=== PATIENT | female | born 1950 | race Caucasian/White ===

== ENCOUNTER 2018-02-08 20:03 | Inpatient (IN) | payer OTHER, MEDICARE ==
[2018-02-08] MEDS ORDERED: KETOROLAC TROMETHAMINE INJ/PF 30 MG/1 ML SDV IV ONE (20:12)
[2018-02-08] MEDS ORDERED: PROCHLORPERAZINE EDISYLATE INJ 10 MG/2 ML VIAL IV ONE (20:12)
[2018-02-08] MEDS ORDERED: RINGERS SOLUTION,LACTATED 1,000 ML IV ONE ×2 (20:13→22:12)
--- NOTE | 2018-02-08 20:14 | ER Document Report ---
ED General - General Stated Complaint: HEADACHE Time Seen by Provider: 02/08/18 20:07 Notes: Patient is a 67 year old female with a past medical history of diabetes and hypertension who presents with 3-4 days of nausea, vomiting and diarrhea. Patient reports that her symptoms initially started with vomiting which has now resolved and now she has persistent, watery, volume is diarrhea. She states that she is having over 10 bowel movements daily. She has tried over-the- counter loperamide without any improvement of her symptoms. Nothing seems to worsen her symptoms. She notes that she has been able to take fluids but has very little appetite and has difficulty swallowing the fluids due to nausea. She denies any fever or constitutional symptoms. She notes that she intermittently has a generalized, mild, cramping pain to her abdomen that tends to present before she has bowel movements but then does resolve. She denies a history of similar symptoms in the past. No known sick contacts. She has not seen her primary care doctor regarding today's concerns. - Related Data Allergies/Adverse Reactions: No Known Allergies Allergy (Unverified 03/31/12 09:25) Past Medical History - General Information source: Patient - Social History Smoking Status: Never Smoker Frequency of alcohol use: None Drug Abuse: None Lives with: Spouse/Significant other Family History: Reviewed & Not Pertinent - Past Medical History Cardiac Medical History: Reports: Hx Hypertension Denies: Hx Heart Attack Pulmonary Medical History: Denies: Hx Asthma Neurological Medical History: Denies: Hx Cerebrovascular Accident, Hx Seizures GI Medical History: Denies: Hx Hepatitis, Hx Hiatal Hernia, Hx Ulcer Infectious Medical History: Denies: Hx Hepatitis Past Surgical History: Reports: Hx Hysterectomy. Denies: Hx Mastectomy, Hx Open Heart Surgery, Hx Pacemaker Review of Systems - Review of Systems Notes: Constitutional: Negative for fever. HENT: Negative for sore throat. Eyes: Negative for visual changes. Cardiovascular: Negative for chest pain. Respiratory: Negative for shortness of breath. Gastrointestinal: Positive for intermittent abdominal cramping, vomiting and diarrhea Genitourinary: Negative for dysuria. Musculoskeletal: Negative for back pain. Skin: Negative for rash. Neurological: Negative for headaches, weakness or numbness. 10 point ROS negative except as marked above and in HPI. Physical Exam - Vital signs Vitals: Pulse Ox 98 02/08/18 20:07 Interpretation: Normal Notes: PHYSICAL EXAMINATION: GENERAL: Appears tired but in no acute distress HEAD: Atraumatic, normocephalic. EYES: Pupils equal round and reactive to light, extraocular movements intact, sclera anicteric, conjunctiva are normal. ENT: nares patent, oropharynx clear without exudates. Moderately dry mucous membranes. NECK: Normal range of motion, supple without lymphadenopathy LUNGS: Breath sounds clear to auscultation bilaterally and equal. No wheezes rales or rhonchi. HEART: Regular rate and rhythm without murmurs ABDOMEN: Soft, nontender, normoactive bowel sounds. No guarding, no rebound. No masses appreciated. EXTREMITIES: Normal range of motion, no pitting or edema. No cyanosis. NEUROLOGICAL: No focal neurological deficits. Moves all extremities spontaneously and on command. PSYCH: Normal mood, normal affect. SKIN: Warm, Dry, normal turgor, no rashes or lesions noted. Course - Re-evaluation Re-evalutation: 02/08/18 20:13 Presentation of an overall well-appearing patient in no acute distress with complaints of nausea, vomiting, diarrhea. This is consistent with likely viral gastroenteritis. Patient has no abdominal tenderness on exam and specifically no tenderness in the RLQ, LLQ, RUQ. Overall well hydrated on exam. Able to tolerate oral intake here in the emergency department. Low clinical suspicion for any acute life-threatening etiology based on exam and history including acute cholecystitis, SBO, appendicitis, nephrolithiasis, or pylonephritis. Patient did also complain of a headache that has been present for the past 2 days. Headache appears to be most consistent with tension versus migrainous type headache. Headache was not maximal in onset, patient has no focal neurologic deficits, no nuchal rigidity, vital signs within normal limits, no papilledema, and patient is overall well in appearance. Based on clinical history and examination I do not suspect an acute subarachnoid hemorrhage, dural venous sinus thrombosis, acute meningitis, or intercranial mass. Given my low clinical suspicion for any acute life-threatening etiology, I do not feel advanced neuro imaging is indicated at this time. Will provide nausea medicines, IV fluids, obtain laboratories and reassess the patient. 02/08/18 22:12 Patient laboratory show acute renal failure, prerenal in origin although the degree of her GFR abnormality warrants hospitalization for repeat BMP and IV fluids. Will give an additional liter of IV fluid at this time. She has not had any vomiting and has been able to tolerate oral intake. Headache has resolved. I have discussed with the hospitalist for admission. - Vital Signs Vital signs: Temp Pulse Resp BP Pulse Ox 97.3 F 73 12 101/41 L 99 02/09/18 00:01 02/09/18 02:00 02/08/18 23:00 02/09/18 00:01 02/09/18 00:01 - Laboratory Result Diagrams: 02/08/18 20:34 02/08/18 20:34 Laboratory results interpreted by me: 02/08/18 02/08/18 02/08/18 20:12 20:34 20:34 WBC 11.1 H Carbon Dioxide 20 L BUN 59 H Creatinine 2.27 H Est GFR ( Amer) 26 L Est GFR (Non-Af Amer) 22 L Glucose 149 H POC Glucose 136 H Calcium 8.1 L AST 47 H ALT 105 H Alkaline Phosphatase 176 H Total Protein 6.1 L Discharge - Discharge Clinical Impression: Dehydration, Vomiting and diarrhea Acute renal failure Qualifiers: Acute renal failure type: unspecified Qualified Code(s): N17.9 - Acute kidney failure, unspecified Condition: Fair Disposition: ADMITTED OBSERVATION Admitting Provider: Hospitalist Unit Admitted: Medical Floor
[2018-02-08 20:47] LABS: ABSOLUTE EOSINOPHILS # (AUTO) 0.1 10^3/uL (0.0-0.6); ABSOLUTE LYMPHOCYTES (AUTO) 1.9 10^3/uL (0.5-4.7); ABSOLUTE MONOCYTES (AUTO) 0.8 10^3/uL (0.1-1.4); ABSOLUTE NEUT (AUTO) 8.2 10^3/uL (1.7-8.2); BASOPHILS % (AUTO) 0.3 % (0-2); EOSINOPHILS % (AUTO) 0.9 % (0-6); HEMATOCRIT 42.1 % (36.0-47.0); HEMOGLOBIN 13.9 g/dL (12.0-15.5); LYMPHOCYTES % (AUTO) 17.1 % (13-45); MEAN CORPUSCULAR HEMOGLOBIN 31.2 pg (27.0-33.4); MEAN CORPUSCULAR VOLUME 94 fl (80-97); MONOCYTES % (AUTO) 7.5 % (3-13); RED BLOOD COUNT 4.46 10^6/uL (3.72-5.28); SEGMENTED NEUTROPHILS % (AUTO) 74.2 % (42-78); TOTAL CELLS COUNTED % (AUTO) 100 %; WHITE BLOOD COUNT 11.1 10^3/uL (4.0-10.5)
[2018-02-08 20:59] LABS: ALANINE AMINOTRANSFERASE 105 U/L (9-52); ALBUMIN 3.8 g/dL (3.5-5.0); ALKALINE PHOSPHATASE 176 U/L (38-126); ANION GAP 15 (5-19); ASPARTATE AMINO TRANSFERASE 47 U/L (14-36); BILIRUBIN,DIRECT 0.4 mg/dL (0.0-0.4); BILIRUBIN,TOTAL 0.5 mg/dL (0.2-1.3); BLOOD UREA NITROGEN 59 mg/dL (7-20); CALCIUM 8.1 mg/dL (8.4-10.2); CARBON DIOXIDE 20 mmol/L (22-30); CHLORIDE 105 mmol/L (98-107); GLUCOSE 149 mg/dL (75-110); LIPASE 116.3 U/L (23-300); POTASSIUM 4.6 mmol/L (3.6-5.0); SODIUM 140.4 mmol/L (137-145); TOTAL PROTEIN 6.1 g/dL (6.3-8.2)
[2018-02-08 21:04] LABS: PLATELET COUNT 189 10^3/uL (150-450)
[2018-02-08] MEDS ORDERED: PROMETHAZINE HCL INJ 25 MG/1 ML VIAL IV PRN (22:30)
[2018-02-08] MEDS ORDERED: GLUCAGON,HUMAN RECOMB 1 MG INJ IM PRN (22:35)
[2018-02-08] MEDS ORDERED: DEXTROSE 50%-WATER 25 GM/50 ML DISP.SYRIN IV PRN ×2 (22:35)
[2018-02-08] MEDS ORDERED: INSULIN LISPRO 100 UNIT/ML 3 ML VIAL SUBCUT PRN (22:35)
[2018-02-08] MEDS ORDERED: DEXTROSE 40% GEL 15 GM TUBE PO PRN ×2 (22:35)
--- NOTE | 2018-02-09 00:24 | PDOC H&P ---
History of Present Illness Admission Date/PCP: 02/08/18 22:30 History of Present Illness: DAVID SIDDIQUI is a 67 year old female patient with past medical history of HTN, HLD, diabetes mellitus and hypothyroidism presented with 2 days history of nausea, vomiting and frequent watery diarrhea. Patient attributes her condition to taking metformin. She denies fever, chills, cough, chest pain , abdominal pain or dysuria. There is no history of sick contact. Her initial lab work shows elevated creatinine of 2.27 and her GFR is disproportionately elevated which is 22. No headache, dizziness, blurry vision or any seizure activity. Past Medical History Cardiac Medical History: Reports: Hypertension Denies: Myocardial Infarction Pulmonary Medical History: Denies: Asthma Neurological Medical History: Denies: Seizures Endocrine Medical History: Reports: Hypothyroidism GI Medical History: Denies: Hepatitis, Hiatal Hernia Hematology: Denies: Anemia, Sickle Cell Disease Past Surgical History Past Surgical History: Reports: Hysterectomy Denies: Amputation, Mastectomy, Pacemaker Social History Smoking Status: Unknown if Ever Smoked - Advance Directive Resuscitation Status: Full Code Family History Family History: Malignancy Parental Family History Reviewed: Yes Children Family History Reviewed: Yes Sibling(s) Family History Reviewed.: Yes Medication/Allergy Home Medications: Aspirin [Aspirin 81 mg Chewable Tablet] 81 mg PO DAILY 03/31/12 Celecoxib [Celebrex] 200 mg PO 03/31/12 Cholecalciferol (Vitamin D3) [Vitamin D3 1000 Unit Tablet] 4,000 unit PO DAILY 03/31/12 Hum Insulin NPH/Reg Insulin Hm [Humulin 70-30 Pen] 100 unit SQ MEALS 03/31/12 Insulin Regular, Human [Humulin R] 100 unit IJ 03/31/12 Levothyroxine Sodium [Synthroid 75 Mcg Tablet] 75 mcg PO DAILY 03/31/12 Olmesartan/Hydrochlorothiazide [Benicar Hct 40-25 Mg Tablet] 1 each PO 03/31/12 Allergies/Adverse Reactions: No Known Allergies Allergy (Unverified 03/31/12 09:25) Review of Systems Constitutional: PRESENT: as per HPI Eyes: PRESENT: as per HPI Cardiovascular: PRESENT: as per HPI Respiratory: PRESENT: as per HPI Gastrointestinal: PRESENT: as per HPI Neurological: PRESENT: as per HPI Physical Exam Vital Signs: Temp Pulse Resp BP Pulse Ox 97.3 F 75 12 101/41 L 99 02/09/18 00:01 02/09/18 00:01 02/08/18 23:00 02/09/18 00:01 02/09/18 00:01 Intake & Output 02/07/18 02/08/18 02/09/18 06:59 06:59 06:59 Weight 112.2 kg Assessment & Plan - Diagnosis (1) Acute kidney injury Is this a current diagnosis for this admission?: Yes Plan: Cautious hydration Avoid nephrotoxic agents Renal functions test in a.m. (2) Hypertension Qualifiers: Hypertension type: essential hypertension Qualified Code(s): I10 - Essential (primary) hypertension Is this a current diagnosis for this admission?: Yes Plan: Continue her home medication (3) Hyperlipidemia Qualifiers: Hyperlipidemia type: unspecified Qualified Code(s): E78.5 - Hyperlipidemia , unspecified Is this a current diagnosis for this admission?: Yes Plan: Continue her home medication (4) Diabetes 1.5, managed as type 2 Is this a current diagnosis for this admission?: Yes Plan: Continue her home medication and put her on sliding scale. - Time Time Spent: 30 to 50 Minutes - Inpatient Certification Medical Necessity: Need For IV Fluids
[2018-02-09] MEDS: NORMAL SALINE 1000 ML 1,000 ML IV PRN ×4 (00:53→21:26)
[2018-02-09] MEDS: HEPARIN SOD (PORCINE) 5,000 UNIT/ML 1 ML SYRINGE SUBCUT SCH ×3 (05:14→21:23)
[2018-02-09] MEDS: LANSOPRAZOLE 30 MG TAB.RAP.DR PO SCH (05:14)
[2018-02-09 05:30] LABS: ABSOLUTE EOSINOPHILS # (AUTO) 0.1 10^3/uL (0.0-0.6); ABSOLUTE LYMPHOCYTES (AUTO) 2.9 10^3/uL (0.5-4.7); ABSOLUTE MONOCYTES (AUTO) 0.9 10^3/uL (0.1-1.4); ABSOLUTE NEUT (AUTO) 6.5 10^3/uL (1.7-8.2); BASOPHILS % (AUTO) 0.3 % (0-2); EOSINOPHILS % (AUTO) 1.3 % (0-6); HEMATOCRIT 38.2 % (36.0-47.0); HEMOGLOBIN 12.7 g/dL (12.0-15.5); LYMPHOCYTES % (AUTO) 27.9 % (13-45); MEAN CORPUSCULAR HEMOGLOBIN 31.4 pg (27.0-33.4); MEAN CORPUSCULAR HGB CONC 33.2 g/dL (32.0-36.0); MEAN CORPUSCULAR VOLUME 95 fl (80-97); MONOCYTES % (AUTO) 8.1 % (3-13); PLATELET COUNT 175 10^3/uL (150-450); RED BLOOD COUNT 4.04 10^6/uL (3.72-5.28); RED CELL DISTRIBUTION WIDTH 14.2 % (11.5-14.0); SEGMENTED NEUTROPHILS % (AUTO) 62.4 % (42-78); TOTAL CELLS COUNTED % (AUTO) 100 %; WHITE BLOOD COUNT 10.5 10^3/uL (4.0-10.5)
[2018-02-09 05:54] LABS: ANION GAP 15 (5-19); BLOOD UREA NITROGEN 55 mg/dL (7-20); CALCIUM 7.9 mg/dL (8.4-10.2); CARBON DIOXIDE 19 mmol/L (22-30); CHLORIDE 109 mmol/L (98-107); GLUCOSE 85 mg/dL (75-110); PHOSPHORUS 4.2 mg/dL (2.5-4.5); SODIUM 142.6 mmol/L (137-145)
[2018-02-09] MEDS: GLIPIZIDE XL 5 MG TAB.ER.24 PO SCH (08:19)
--- NOTE | 2018-02-09 10:28 | PDOC PROGRESS REPORT ---
Subjective Progress Note for:: 02/09/18 Subjective:: Patient is seen on rounds. She is resting on the side of the bed. Her is at the bedside. She denies any chest pain, shortness of breath or dyspnea. She denies any fevers or chills. She denies any further nausea, vomiting or diarrhea. She denies any significant arthralgias or myalgias. Reason For Visit: ACUTE KIDNEY INJURY, DEHYDRATION Physical Exam Vital Signs: Temp Pulse Resp BP Pulse Ox 98.8 F 79 18 110/41 L 94 02/09/18 07:38 02/09/18 07:38 02/09/18 07:38 02/09/18 07:38 02/09/18 07:38 Intake & Output 02/08/18 02/09/18 02/10/18 06:59 06:59 06:59 Intake Total 1200 Balance 1200 Weight 112.5 kg General appearance: PRESENT: no acute distress, morbidly obese, well-developed, well-nourished Head exam: PRESENT: atraumatic, normocephalic Eye exam: PRESENT: conjunctiva pink, EOMI, PERRLA. ABSENT: scleral icterus Ear exam: PRESENT: normal external ear exam Mouth exam: PRESENT: moist, tongue midline Neck exam: ABSENT: carotid bruit, JVD, lymphadenopathy, thyromegaly Respiratory exam: PRESENT: clear to auscultation luisa. ABSENT: rales, rhonchi, wheezes Cardiovascular exam: PRESENT: RRR. ABSENT: diastolic murmur, rubs, systolic murmur Pulses: PRESENT: normal dorsalis pedis pul Vascular exam: PRESENT: normal capillary refill GI/Abdominal exam: PRESENT: ascites Rectal exam: PRESENT: deferred Extremities exam: PRESENT: full ROM. ABSENT: calf tenderness, clubbing, pedal edema Neurological exam: PRESENT: alert, awake, oriented to person, oriented to place , oriented to time, oriented to situation, CN II-XII grossly intact. ABSENT: motor sensory deficit Psychiatric exam: PRESENT: appropriate affect, normal mood. ABSENT: homicidal ideation, suicidal ideation Skin exam: PRESENT: dry, intact, warm. ABSENT: cyanosis, rash Results Laboratory Results: 02/09/18 04:47 02/09/18 04:47 02/09/18 02/09/18 04:47 04:47 WBC 10.5 RBC 4.04 Hgb 12.7 Hct 38.2 MCV 95 MCH 31.4 MCHC 33.2 RDW 14.2 H Plt Count 175 Seg Neutrophils % 62.4 Lymphocytes % 27.9 Monocytes % 8.1 Eosinophils % 1.3 Basophils % 0.3 Absolute Neutrophils 6.5 Absolute Lymphocytes 2.9 Absolute Monocytes 0.9 Absolute Eosinophils 0.1 Absolute Basophils 0.0 Sodium 142.6 Potassium 4.0 Chloride 109 H Carbon Dioxide 19 L Anion Gap 15 BUN 55 H Creatinine 1.65 H Est GFR ( Amer) 38 L Est GFR (Non-Af Amer) 31 L Glucose 85 Calcium 7.9 L Phosphorus 4.2 Magnesium 2.6 H Assessment & Plan - Diagnosis (1) Acute kidney injury Is this a current diagnosis for this admission?: Yes Plan: Improving with IV hydration. Nausea, vomiting and diarrhea has resolved for now (2) Dehydration Is this a current diagnosis for this admission?: Yes Plan: Continue IV fluids (3) Diabetes 1.5, managed as type 2 Is this a current diagnosis for this admission?: Yes (4) Hyperlipidemia Qualifiers: Hyperlipidemia type: unspecified Qualified Code(s): E78.5 - Hyperlipidemia , unspecified Is this a current diagnosis for this admission?: Yes Plan: Continue statin (5) Hypertension Qualifiers: Hypertension type: essential hypertension Qualified Code(s): I10 - Essential (primary) hypertension Is this a current diagnosis for this admission?: Yes Plan: She is normotensive on current medications (6) Vomiting and diarrhea Is this a current diagnosis for this admission?: No Plan: This has resolved (7) Morbid obesity Is this a current diagnosis for this admission?: Yes Plan: Counseled - Time Time Spent with patient: 15-24 minutes Medications reviewed and adjusted accordingly: Yes Anticipated discharge: Home Within: within 24 hours
[2018-02-09] MEDS: ACETAMINOPHEN 325 MG TABLET PO PRN ×2 (12:39→23:25)
[2018-02-10 05:07] LABS: ABSOLUTE EOSINOPHILS # (AUTO) 0.1 10^3/uL (0.0-0.6); ABSOLUTE LYMPHOCYTES (AUTO) 2.7 10^3/uL (0.5-4.7); ABSOLUTE MONOCYTES (AUTO) 0.8 10^3/uL (0.1-1.4); ABSOLUTE NEUT (AUTO) 5.8 10^3/uL (1.7-8.2); BASOPHILS % (AUTO) 0.2 % (0-2); EOSINOPHILS % (AUTO) 1.5 % (0-6); HEMATOCRIT 35.5 % (36.0-47.0); HEMOGLOBIN 11.8 g/dL (12.0-15.5); LYMPHOCYTES % (AUTO) 28.6 % (13-45); MEAN CORPUSCULAR HEMOGLOBIN 31.4 pg (27.0-33.4); MEAN CORPUSCULAR HGB CONC 33.3 g/dL (32.0-36.0); MEAN CORPUSCULAR VOLUME 94 fl (80-97); MONOCYTES % (AUTO) 8.1 % (3-13); PLATELET COUNT 185 10^3/uL (150-450); RED BLOOD COUNT 3.77 10^6/uL (3.72-5.28); RED CELL DISTRIBUTION WIDTH 14.1 % (11.5-14.0); SEGMENTED NEUTROPHILS % (AUTO) 61.6 % (42-78); TOTAL CELLS COUNTED % (AUTO) 100 %; WHITE BLOOD COUNT 9.4 10^3/uL (4.0-10.5)
[2018-02-10] MEDS: LANSOPRAZOLE 30 MG TAB.RAP.DR PO SCH (05:19)
[2018-02-10] MEDS: HEPARIN SOD (PORCINE) 5,000 UNIT/ML 1 ML SYRINGE SUBCUT SCH (05:19)
[2018-02-10 05:32] LABS: ANION GAP 10 (5-19); CALCIUM 7.8 mg/dL (8.4-10.2); CARBON DIOXIDE 21 mmol/L (22-30); CHLORIDE 112 mmol/L (98-107); GLUCOSE 159 mg/dL (75-110); SODIUM 142.6 mmol/L (137-145)
[2018-02-10 05:59] LABS: BLOOD UREA NITROGEN 24 mg/dL (7-20)
[2018-02-10] MEDS ORDERED: CELECOXIB 200 MG CAPSULE PO SCH (08:00)
[2018-02-10 08:16] VITALS: BP 148/56
[2018-02-10] MEDS: GLIPIZIDE XL 5 MG TAB.ER.24 PO SCH (08:30)
--- NOTE | 2018-02-10 09:59 | PDOC DISCHARGE SUMMARY ---
General - Admit/Disc Date/PCP Admission Date/Primary Care Provider: 02/08/18 22:30 Discharge Date: 02/10/18 - Discharge Diagnosis (1) Acute kidney injury Is this a current diagnosis for this admission?: Yes Summary: Resolved, secondary to dehydration vomiting and diarrhea (2) Dehydration Is this a current diagnosis for this admission?: Yes Summary: Resolved (3) Diabetes 1.5, managed as type 2 Is this a current diagnosis for this admission?: Yes Summary: Continue home medications hold metformin (4) Hyperlipidemia Is this a current diagnosis for this admission?: Yes Summary: Continue statin (5) Hypertension Is this a current diagnosis for this admission?: Yes Summary: Continue home medications (6) Vomiting and diarrhea Is this a current diagnosis for this admission?: No Summary: Resolved secondary to viral gastroenteritis (7) Morbid obesity Is this a current diagnosis for this admission?: Yes Summary: Counseled - Additional Information Resuscitation Status: Full Code Discharge Diet: Diabetic Discharge Activity: Activity As Tolerated, Balance Activity w/Rest Home Medications: Aspirin [Aspirin 81 mg Chewable Tablet] 81 mg PO DAILY 02/09/18 Atorvastatin Calcium [Lipitor 10 mg Tablet] 5 mg PO DAILY 02/09/18 Celecoxib [Celebrex 200 mg Capsule] 200 mg PO Q2D 02/09/18 Cinnamon Bark [Cinnamon] 1,000 mg PO DAILY 02/09/18 Insulin Glargine,Hum.rec.anlog [Basaglar Kwikpen U-100] 45 units SQ QPM Levothyroxine Sodium [Synthroid] 112 mg PO Q6AM 02/09/18 Metoprolol Succinate [Toprol XL 100 mg Tablet] 100 mg PO DAILY 02/09/18 Multivitamin [Tab-A-Aditya (Multiple Vitamin) Tablet] 1 tab PO DAILY 02/09/18 Pregabalin [Lyrica] 75 mg PO Q12 02/09/18 Semaglutide [Ozempic] 0.5 mg SQ TU@0800 02/09/18 Telmisartan/Hydrochlorothiazid [Telmisartan-Hctz 80-25 mg Tab] 1 tab PO DAILY History of Present Illness Patient complains of: Nausea,vomiting and diarrhea x 3 days History of Present Illness: DAVID SIDDIQUI is a 67 year old female patient with past medical history of HTN, HLD, diabetes mellitus and hypothyroidism presented with 2 days history of nausea, vomiting and frequent watery diarrhea. Patient attributes her condition to taking metformin. She denies fever, chills, cough, chest pain , abdominal pain or dysuria. There is no history of sick contact. Her initial lab work shows elevated creatinine of 2.27 and her GFR is disproportionately elevated which is 22. No headache, dizziness, blurry vision or any seizure activity. The patient was given IV fluids. Her ARB/thiazide diuretic and metformin was held for the last 2 days. Her bun/creatinine and electrolytes returned to normal. Her nausea resolved and she has been tolerating a regular diabetic. Hospital Course Hospital Course: he patient was given IV fluids. Her ARB/thiazide diuretic and metformin was held for the last 2 days. Her bun/creatinine and electrolytes returned to normal. Her nausea resolved and she has been tolerating a regular diabetic. Physical Exam Vital Signs: Temp Pulse Resp BP Pulse Ox 98.2 F 84 18 148/56 H 98 02/10/18 08:02 02/10/18 08:02 02/10/18 08:02 02/10/18 08:02 02/10/18 08:02 Intake & Output 02/09/18 02/10/18 02/11/18 06:59 06:59 06:59 Intake Total 1200 4918 Output Total 1900 Balance 1200 3018 Weight 112.5 kg 112.5 kg General appearance: PRESENT: no acute distress, morbidly obese, well-developed, well-nourished Head exam: PRESENT: atraumatic, normocephalic Eye exam: PRESENT: conjunctiva pink, EOMI, PERRLA. ABSENT: scleral icterus Ear exam: PRESENT: normal external ear exam Mouth exam: PRESENT: moist, tongue midline Neck exam: ABSENT: carotid bruit, JVD, lymphadenopathy, thyromegaly Respiratory exam: PRESENT: clear to auscultation luisa. ABSENT: rales, rhonchi, wheezes Cardiovascular exam: PRESENT: RRR. ABSENT: diastolic murmur, rubs, systolic murmur Pulses: PRESENT: normal dorsalis pedis pul Vascular exam: PRESENT: normal capillary refill GI/Abdominal exam: PRESENT: normal bowel sounds, soft. ABSENT: distended, guarding, mass, organolmegaly, rebound, tenderness Rectal exam: PRESENT: deferred Extremities exam: PRESENT: full ROM. ABSENT: calf tenderness, clubbing, pedal edema Neurological exam: PRESENT: alert, awake, oriented to person, oriented to place , oriented to time, oriented to situation, CN II-XII grossly intact. ABSENT: motor sensory deficit Psychiatric exam: PRESENT: appropriate affect, normal mood. ABSENT: homicidal ideation, suicidal ideation Skin exam: PRESENT: dry, intact, warm. ABSENT: cyanosis, rash Results Laboratory Results: 02/10/18 04:12 02/10/18 04:12 02/10/18 02/10/18 04:12 04:12 WBC 9.4 RBC 3.77 Hgb 11.8 L Hct 35.5 L MCV 94 MCH 31.4 MCHC 33.3 RDW 14.1 H Plt Count 185 Seg Neutrophils % 61.6 Lymphocytes % 28.6 Monocytes % 8.1 Eosinophils % 1.5 Basophils % 0.2 Absolute Neutrophils 5.8 Absolute Lymphocytes 2.7 Absolute Monocytes 0.8 Absolute Eosinophils 0.1 Absolute Basophils 0.0 Sodium 142.6 Potassium 4.0 Chloride 112 H Carbon Dioxide 21 L Anion Gap 10 BUN 24 H D Creatinine 0.75 Est GFR ( Amer) > 60 Est GFR (Non-Af Amer) > 60 Glucose 159 H Calcium 7.8 L Qualifiers - * PATIENT BEING DISCHARGED WITH ANY OF THE FOLLOWING DIAGNOSIS: No Plan Discharge Plan: Home with Time Spent: Less than 30 Minutes
[2018-02-10] MEDS ORDERED: ASPIRIN 81 MG TABLET, CHEWABLE PO SCH (10:00)
[2018-02-10] MEDS ORDERED: METOPROLOL SUCCINATE 50 MG TAB.SR.24H PO SCH (10:00)
[2018-02-10] MEDS ORDERED: PREGABALIN 75 MG CAPSULE PO SCH (10:00)
[2018-02-10] MEDS ORDERED: MULTIVITAMIN TABLET PO SCH (10:00)
[2018-02-10] MEDS ORDERED: ATORVASTATIN CALCIUM 10 MG TABLET PO SCH (10:00)
[2018-02-10] MEDS ORDERED: INSULIN GLARGINE,HUM.REC.ANLOG 300 UNIT/3 ML INSULN.PEN SUBCUT SCH (18:00)
[2018-02-11] MEDS ORDERED: LEVOTHYROXINE SODIUM 0.112 MG TABLET PO SCH (06:00)
== END 2018-02-10 11:15 | disposition home or self-care (01) | DRG 683 ==
LOC: ER 20:03 → EH 22:18 → OBSVTOIN 22:30 → 3W 23:52
PROVIDERS: ADMIT Internal Medicine; ATTEND Internal Medicine
DX: N17.9 Acute kidney failure, unspecified (principal); Z68.42 Body mass index [BMI] 45.0-49.9, adult; E86.0 Dehydration; A08.4 Viral intestinal infection, unspecified; I10 Essential (primary) hypertension; E11.9 Type 2 diabetes mellitus without complications; E66.01 Morbid (severe) obesity due to excess calories; E03.9 Hypothyroidism, unspecified; T38.3X5A Adverse effect of insulin and oral hypoglycemic [antidiabetic] drugs, initial encounter; Z90.710 Acquired absence of both cervix and uterus; Z79.4 Long term (current) use of insulin
CPT/HCPCS: 36415; 80048; 80053; 82962; 83690; 83735; 84100; 85025; 96361; 96374; 96375; 99285; J0780; J1644; J1815; J1885; J7030; J7120

== ENCOUNTER 2019-02-21 06:34 | Emergency (ER) | payer OTHER, MEDICARE ==
[2019-02-21] MEDS ORDERED: ONDANSETRON HCL INJ/PF 4 MG/2 ML SDV IV ONE (07:40)
--- NOTE | 2019-02-21 07:42 | ER Document Report ---
ED Medical Screen (RME) - General Chief Complaint: Nausea/Vomiting Stated Complaint: NAUSEA,VOMITING Time Seen by Provider: 02/21/19 07:34 Notes: Patient is a 68-year-old female who presents to the emergency department with nausea, vomiting, and weakness. Her is at bedside to provide additional history. Patient had back surgery on February 12 at [facility]. states that patient was choking on her vomitus at 4:30 in the morning. Exam: Abdomen soft. Normoactive bowel sounds. Round abdomen. I have greeted and performed a rapid initial assessment of this patient. A comprehensive ED assessment and evaluation of the patient, analysis of test results and completion of medical decision making process will be conducted by an additional ED providers. TRAVEL OUTSIDE OF THE [place] IN LAST 30 DAYS: No - Related Data Allergies/Adverse Reactions: No Known Allergies Allergy (Unverified 03/31/12 09:25) Past Medical History - Social History Chew tobacco use (# tins/day): No Frequency of alcohol use: None Drug Abuse: None - Past Medical History Cardiac Medical History: Reports: Hx Hypertension Denies: Hx Heart Attack Pulmonary Medical History: Denies: Hx Asthma Neurological Medical History: Denies: Hx Cerebrovascular Accident, Hx Seizures Endocrine Medical History: Reports: Hx Hypothyroidism Renal/ Medical History: Denies: Hx Peritoneal Dialysis GI Medical History: Denies: Hx Hepatitis, Hx Hiatal Hernia, Hx Ulcer Infectious Medical History: Denies: Hx Hepatitis Past Surgical History: Reports: Hx Hysterectomy, Hx Orthopedic Surgery - spinal fusion. Denies: Hx Mastectomy, Hx Open Heart Surgery, Hx Pacemaker - Immunizations History of Influenza Vaccine for 07/2017 - 12/2017 Season: Yes Influenza Administration Date for 07/2017 - 12/2017 Season: 07/06/18 Physical Exam - Vital signs Vitals: Temp Pulse Resp BP Pulse Ox 97.4 F 106 H 18 138/83 H 96 02/21/19 06:51 02/21/19 06:51 02/21/19 06:51 02/21/19 06:51 02/21/19 06:51 Course - Vital Signs Vital signs: Temp Pulse Resp BP Pulse Ox 97.4 F 106 H 17 156/62 H 97 02/21/19 06:51 02/21/19 06:51 02/21/19 07:01 02/21/19 07:01 02/21/19 07:01
[2019-02-21 08:18] LABS: ABSOLUTE LYMPHOCYTES (AUTO) 1.5 10^3/uL (0.5-4.7); ABSOLUTE MONOCYTES (AUTO) 0.6 10^3/uL (0.1-1.4); ABSOLUTE NEUT (AUTO) 10.1 10^3/uL (1.7-8.2); BASOPHILS % (AUTO) 0.3 % (0-2); EOSINOPHILS % (AUTO) 0.4 % (0-6); LYMPHOCYTES % (AUTO) 12.2 % (13-45); MEAN CORPUSCULAR HEMOGLOBIN 31.7 pg (27.0-33.4); MEAN CORPUSCULAR HGB CONC 32.4 g/dL (32.0-36.0); MEAN CORPUSCULAR VOLUME 98 fl (80-97); MONOCYTES % (AUTO) 4.8 % (3-13); PLATELET COUNT 323 10^3/uL (150-450); RED BLOOD COUNT 3.16 10^6/uL (3.72-5.28); SEGMENTED NEUTROPHILS % (AUTO) 82.3 % (42-78); TOTAL CELLS COUNTED % (AUTO) 100 %; WHITE BLOOD COUNT 12.3 10^3/uL (4.0-10.5)
[2019-02-21 08:21] LABS: ALANINE AMINOTRANSFERASE 53 U/L (9-52); ALKALINE PHOSPHATASE 399 U/L (38-126); ANION GAP 13 (5-19); ASPARTATE AMINO TRANSFERASE 35 U/L (14-36); BILIRUBIN,DIRECT 0.4 mg/dL (0.0-0.4); BILIRUBIN,TOTAL 0.7 mg/dL (0.2-1.3); BLOOD UREA NITROGEN 41 mg/dL (7-20); CALCIUM 10.6 mg/dL (8.4-10.2); CARBON DIOXIDE 30 mmol/L (22-30); CHLORIDE 98 mmol/L (98-107); GLUCOSE 195 mg/dL (75-110); POTASSIUM 4.7 mmol/L (3.6-5.0); SODIUM 141.1 mmol/L (137-145); TOTAL PROTEIN 6.8 g/dL (6.3-8.2)
--- NOTE | 2019-02-21 08:29 | ER Document Report ---
ED General - General Chief Complaint: Nausea/Vomiting Stated Complaint: NAUSEA,VOMITING Time Seen by Provider: 02/21/19 07:34 Primary Care Provider: JULIANA BRIOENS MD [Primary Care Provider] - Follow up as needed Notes: 68-year-old female with recent L3/L4/L5 fusion and laminectomy discharge from [facility] on 02/15/2019 with hypertension, hypothyroidism, and [id number] diabetes mellitus presents to the emergency department for chief complaint of acute nausea and vomiting since 5:00 this morning. states her recovery has been going as expected when she was sleeping and she started choking this morning he went to help her and noticed that she had vomited and possibly aspirated. No fevers, no chills, no shortness of breath or chest pain, denies abdominal pain, normal bowel movements, is concerned because she has a tremor that is much more pronounced. Patient is in mild distress. TRAVEL OUTSIDE OF THE [place] IN LAST 30 DAYS: No - Related Data Allergies/Adverse Reactions: No Known Allergies Allergy (Unverified 03/31/12 09:25) Past Medical History - Social History Smoking Status: Unknown if Ever Smoked Chew tobacco use (# tins/day): No Frequency of alcohol use: None Drug Abuse: None Family History: Reviewed & Not Pertinent Patient has suicidal ideation: No Patient has homicidal ideation: No - Past Medical History Cardiac Medical History: Reports: Hx Hypertension Denies: Hx Heart Attack Pulmonary Medical History: Denies: Hx Asthma Neurological Medical History: Denies: Hx Cerebrovascular Accident, Hx Seizures Endocrine Medical History: Reports: Hx Hypothyroidism Renal/ Medical History: Denies: Hx Peritoneal Dialysis GI Medical History: Denies: Hx Hepatitis, Hx Hiatal Hernia, Hx Ulcer Infectious Medical History: Denies: Hx Hepatitis Past Surgical History: Reports: Hx Hysterectomy, Hx Orthopedic Surgery - spinal fusion. Denies: Hx Mastectomy, Hx Open Heart Surgery, Hx Pacemaker Review of Systems - Review of Systems Constitutional: See HPI EENT: See HPI Cardiovascular: See HPI Respiratory: See HPI Gastrointestinal: See HPI Genitourinary: See HPI Female Genitourinary: No symptoms reported Musculoskeletal: No symptoms reported Skin: No symptoms reported Hematologic/Lymphatic: No symptoms reported Neurological/Psychological: See HPI Physical Exam - Vital signs Vitals: Temp Pulse Resp BP Pulse Ox 97.4 F 106 H 18 138/83 H 96 02/21/19 06:51 02/21/19 06:51 02/21/19 06:51 02/21/19 06:51 02/21/19 06:51 - Notes Notes: PHYSICAL EXAMINATION: Reviewed vital signs and charting by RN GENERAL: Well-appearing, well-nourished and in mildly acute distress. HEAD: Atraumatic, normocephalic. No scalp deformity, depression, or crepitance. EYES: Patient's eyes were closed and she was grimacing NECK: Normal range of motion, supple without lymphadenopathy. LUNGS: Breath sounds present, equal, and clear to auscultation bilaterally. No wheezes, rales, or rhonchi. HEART: Regular rate and rhythm without murmurs, rubs, or gallops. 2+ peripheral pulses. Normal capillary refill. ABDOMEN: Soft, nontender, nondistended. Normoactive bowel sounds. No guarding, no rebound. No masses appreciated. BACK: Normal contour, no midline tenderness. Surgical site clean dry intact, Steri-Strips in place, no erythema or purulent discharge rectal exam deferred. PELVC: Deferred. EXTREMITIES: Normal range of motion, no pitting or edema. No cyanosis. 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 Moves all extremities spontaneously and on command. PSYCH: Normal mood, normal affect. No suicidal thoughts/ideations. No homocidal thoughts/ideations. No hallucinations. SKIN: Warm, dry, normal turgor, no rashes or lesions noted. Course - Re-evaluation Re-evalutation: 02/21/19 09:35 Patient presents in mild distress tremoring and is nauseated. She was given an additional Zofran 4 mg IV once and she took 1 of her narcotic pain medications from her surgery. When I went to reassess her she was sleeping comfortably in no acute distress, no evidence of nausea or vomiting. Lab work returned and she has a mild leukocytosis most likely due to stress reaction, her creatinine is 1.72 and alk phos is 399. I discussed case with Dr. Roth, supervising physician, and we will give IV fluids and reassess. No history of congestive heart failure 02/21/19 16:57 Dr. Roth left so I discussed patient with Dr. Young. Troponins were added, a lipase, urinalysis, and EKG. 2- troponins and lipase was within normal limits. She does have a urinary tract infection. Plan is to treat her with Keflex 1000 mg twice daily. I will give her Rocephin 1 g here in the emergency department. Instructed patient to follow-up with her primary doctor tomorrow. I told her to aggressively rehydrate orally. I will give her an additional normal saline 500 mL's prior to discharge. Stable for discharge 02/21/19 17:04 - Vital Signs Vital signs: Temp Pulse Resp BP Pulse Ox 97.3 F 106 H 12 137/45 H 100 02/21/19 08:38 02/21/19 06:51 02/21/19 13:01 02/21/19 13:01 02/21/19 13:01 - Laboratory Result Diagrams: 02/21/19 07:52 02/21/19 14:23 Laboratory results interpreted by me: 02/21/19 02/21/19 02/21/19 07:52 07:52 07:52 WBC 12.3 H RBC 3.16 L Hgb 10.0 L Hct 31.0 L MCV 98 H RDW 15.0 H Seg Neutrophils % 82.3 H Lymphocytes % 12.2 L Absolute Neutrophils 10.1 H BUN 41 H Creatinine 1.72 H Est GFR ( Amer) 36 L Est GFR (Non-Af Amer) 30 L Glucose 195 H Calcium 10.6 H ALT 53 H Alkaline Phosphatase 399 H Total Protein Albumin TSH 0.15 L Urine Glucose (UA) Urine Ketones Ur Leukocyte Esterase Urine Ascorbic Acid 02/21/19 02/21/19 08:44 14:23 WBC RBC Hgb Hct MCV RDW Seg Neutrophils % Lymphocytes % Absolute Neutrophils BUN 41 H Creatinine 1.55 H Est GFR ( Amer) 40 L Est GFR (Non-Af Amer) 33 L Glucose 139 H Calcium ALT Alkaline Phosphatase 290 H Total Protein 5.9 L Albumin 3.2 L TSH Urine Glucose (UA) >=500 H Urine Ketones TRACE H Ur Leukocyte Esterase SMALL H Urine Ascorbic Acid 40 H Discharge - Discharge Clinical Impression: Acute kidney injury Urinary tract infection Qualifiers: Urinary tract infection type: acute cystitis Hematuria presence: without hematuria Qualified Code(s): N30.00 - Acute cystitis without hematuria Nausea & vomiting Qualifiers: Vomiting type: unspecified Vomiting Intractability: non-intractable Qualified Code(s): R11.2 - Nausea with vomiting, unspecified Condition: Stable Disposition: HOME, SELF-CARE Instructions: Antinausea Medication ([facility]), Cephalexin ([facility]), Intravenous (IV) Fluids ([facility]), Urinary Tract Infection ([facility]) Additional Instructions: Your urine shows findings consistent with a urinary tract infection. Please take all the antibiotics as directed even if your symptoms have improved. Please follow-up with your primary care physician as needed. Return to emergency room if you develop fever >101F, persistent vomiting, become lethargic, have severe pain in your sides, or any other symptoms that are concerning to you. Also, your creatinine is elevated indicating that you are acutely dehydrated. We did give you some IV fluids here in the emergency department but it is very important that you aggressively drink fluids to rehydrate yourself. If you develop severe flank pain, do not urinate at least twice in 24 hours, you become severely dizzy or lightheaded, pass out, or have any other concerning symptoms please immediately return to the emergency department. Referrals: JULIANA BRIONES MD [Primary Care Provider] - Follow up as needed
--- NOTE | 2019-02-21 08:43 | RADIOLOGY REPORT (SQ) ---
EXAM DESCRIPTION: CHEST SINGLE VIEW COMPLETED DATE/TIME: 02/21/2019 8:15 am REASON FOR STUDY: eval aspiration PNA COMPARISON: None. EXAM PARAMETERS: NUMBER OF VIEWS: One view. TECHNIQUE: Single frontal radiographic view of the chest acquired. RADIATION DOSE: NA LIMITATIONS: None. FINDINGS: LUNGS AND PLEURA: No opacities, masses or pneumothorax. No pleural effusion. MEDIASTINUM AND HILAR STRUCTURES: No masses. Contour normal. HEART AND VASCULAR STRUCTURES: Heart normal in size. Normal vasculature. BONES: No acute findings. Old fracture of the right shoulder. HARDWARE: None in the chest. Clips in the upper abdomen. OTHER: No other significant finding. IMPRESSION: NO ACUTE RADIOGRAPHIC FINDING IN THE CHEST. TECHNICAL DOCUMENTATION: JOB ID: [id number] [employer]- All Rights Reserved Reading location - IP/workstation name: [email or web address]
[2019-02-21] MEDS ORDERED: NORMAL SALINE 1000 ML 1,000 ML IV ONE (09:27)
[2019-02-21] MEDS ORDERED: PROMETHAZINE HCL INJ 25 MG/1 ML VIAL IV ONE (09:28)
[2019-02-21] MEDS ORDERED: NORMAL SALINE 1000 ML 500 ML IV ONE ×2 (12:19→16:57)
[2019-02-21 14:31] LABS: ALANINE AMINOTRANSFERASE 45 U/L (9-52); ALBUMIN 3.2 g/dL (3.5-5.0); ALKALINE PHOSPHATASE 290 U/L (38-126); ANION GAP 8 (5-19); ASPARTATE AMINO TRANSFERASE 30 U/L (14-36); BILIRUBIN,DIRECT 0.3 mg/dL (0.0-0.4); BILIRUBIN,TOTAL 0.5 mg/dL (0.2-1.3); BLOOD UREA NITROGEN 41 mg/dL (7-20); CALCIUM 9.4 mg/dL (8.4-10.2); CARBON DIOXIDE 29 mmol/L (22-30); CHLORIDE 104 mmol/L (98-107); GLUCOSE 139 mg/dL (75-110); POTASSIUM 4.8 mmol/L (3.6-5.0); SODIUM 141.2 mmol/L (137-145); TOTAL PROTEIN 5.9 g/dL (6.3-8.2)
[2019-02-21] MEDS ORDERED: PROMETHAZINE HCL INJ 50 MG/1 ML VIAL IM PRN (15:00)
[2019-02-21 15:17] LABS: APPEARANCE,URINE CLOUDY; BILIRUBIN,URINE NEGATIVE (NEGATIVE); COLOR,URINE YELLOW; GLUCOSE, URINE >=500 mg/dL (NEGATIVE); KETONES,URINE TRACE mg/dL (NEGATIVE); LEUKOCYTE ESTERASE,URINE SMALL (NEGATIVE); NITRITE,URINE NEGATIVE (NEGATIVE); PROTEIN,URINE NEGATIVE (NEGATIVE); UROBILINOGEN,URINE NEGATIVE mg/dL (<2.0)
[2019-02-21] MEDS ORDERED: ONDANSETRON ODT 4 MG TAB (6 TAB/ER DISP) PO PRN (16:57)
[2019-02-21] MEDS ORDERED: CEFTRIAXONE 1 GM/D5W RTU 1 GM/50 ML RTUPB IV ONE (17:00)
[2019-02-21 18:29] VITALS: BP 132/54
--- NOTE | 2019-02-21 23:48 | EKG REPORT ---
SEVERITY:- NORMAL ECG - SINUS RHYTHM : Confirmed by: Ang Canas MD 21-Feb-2019 23:48:09
== END 2019-02-21 18:31 | disposition home or self-care (01) ==
LOC: ER 06:34
DX: R11.2 Nausea with vomiting, unspecified (principal); N30.00 Acute cystitis without hematuria; N17.9 Acute kidney failure, unspecified; R25.1 Tremor, unspecified; I10 Essential (primary) hypertension; E11.9 Type 2 diabetes mellitus without complications; Z98.1 Arthrodesis status
CPT/HCPCS: 93005; 99284; 96372; 96361; 96375; 96365; 36415; 87086; 83690; 84443; 85025; 87088; 80053; 81001; 84484; 87186; 71045; 93010; J2550; J2405; J7030; J0696